=== PATIENT | male | born 1980 | race African-American/Black ===

== ENCOUNTER 2023-01-07 14:14 | Emergency (ER) | payer BC ==
[~2023-01-07] VITALS: Ht 170.1 cm; Wt 89.5 kg
--- NOTE | 2023-01-07 14:22 | ED Chest Pain ---
General Chief Complaint: Chest Pain Stated Complaint: CP LAST NIGHT History of Present Illness Date Seen by Provider: Jan 07, 2023 Time Seen by Provider: 14:22 Initial Comments 42-year-old male with PMH of GERD/HTN/active smoker, is sent here from urgent care with complaints of bilateral upper and retrosternal chest pain which began last night. Patient does have a history of lifting heavy boxes and furniture around yesterday. Patient does not take Prilosec regularly for his GERD and he also is very noncompliant with his blood pressure medications and has not been taking it for a while. Patient has a strong family history of heart attacks which include his parents and relatives a couple of who in their 50s due to heart disease. Denies shortness of breath, fever and chills, cough, nausea and vomiting, diaphoresis. Allergies and Home Medications Allergies Coded Allergies: No Known Drug Allergies (Unverified , 01/07/23) Patient Home Medication List Home Medication List Reviewed: Yes Review of Systems Review of Systems Constitutional: no symptoms reported EENTM: No Symptoms Reported Respiratory: No Symptoms Reported Cardiovascular: Chest Pain Gastrointestinal: No Symptoms Reported Genitourinary: No Symptoms Reported Musculoskeletal: no symptoms reported Skin: no symptoms reported Psychiatric/Neurological: No Symptoms Reported Endocrine: No Symptoms Reported Hematologic/Lymphatic: No Symptoms Reported Physical Exam Vital Signs Vital Signs - First Documented 01/07/23 14:18 Temp 35.9 Pulse 99 Resp 18 B/P (MAP) 131/90 (104) Pulse Ox 96 O2 Delivery Room Air Capillary Refill : Height, Weight, BMI Height: '" Weight: lbs. oz. kg; BMI Method: General Appearance: No Apparent Distress, WD/WN HEENT: PERRL/EOMI Neck: Full Range of Motion Respiratory: Lungs Clear, Normal Breath Sounds, No Accessory Muscle Use, Other (Reproducible chest tenderness over the second third and fourth costochondral junctions bilaterally) Cardiovascular: Regular Rate, Rhythm, No Edema Gastrointestinal: Normal Bowel Sounds, Non Tender, Soft Extremity: Normal Range of Motion Neurologic/Psychiatric: Alert, Oriented x3, No Motor/Sensory Deficits Skin: Normal Color Progress/Results/Core Measures Results/Orders Lab Results Laboratory Tests Test 01/07/23 14:20 01/07/23 14:35 01/07/23 15:35 Range/Units Urine Color YELLOW Urine Clarity CLEAR Urine pH 6.0 5-9 Urine Specific [place] 1.025 H 1.016-1.022 Urine Protein NEGATIVE NEGATIVE Urine Glucose (UA) NEGATIVE NEGATIVE Urine Ketones NEGATIVE NEGATIVE Urine Nitrite NEGATIVE NEGATIVE Urine Bilirubin NEGATIVE NEGATIVE Urine Urobilinogen 0.2 < = 1.0 MG/DL Urine Leukocyte Esterase NEGATIVE NEGATIVE Urine RBC (Auto) TRACE-I H NEGATIVE Urine RBC 5-10 H /HPF Urine WBC NONE /HPF Urine Crystals NONE /LPF Urine Bacteria TRACE /HPF Urine Casts NONE /LPF Urine Mucus LARGE H /LPF Urine Other SPERM PRESENT /HPF Urine Culture Indicated NO Urine Opiates Screen NEGATIVE NEGATIVE Urine Oxycodone Screen NEGATIVE NEGATIVE Urine Methadone Screen NEGATIVE NEGATIVE Urine Propoxyphene Screen NEGATIVE NEGATIVE Urine Barbiturates Screen NEGATIVE NEGATIVE Ur Tricyclic Antidepressants Screen NEGATIVE NEGATIVE Urine Phencyclidine Screen NEGATIVE NEGATIVE Urine Amphetamines Screen NEGATIVE NEGATIVE Urine Methamphetamines Screen NEGATIVE NEGATIVE Urine Benzodiazepines Screen NEGATIVE NEGATIVE Urine Cocaine Screen NEGATIVE NEGATIVE Urine Cannabinoids Screen NEGATIVE NEGATIVE White Blood Count 10.0 4.3-11.0 10^3/uL Red Blood Count 5.82 H 4.30-5.52 10^6/uL Hemoglobin 18.0 H 13.3-17.7 g/dL Hematocrit 52 40-54 % Mean Corpuscular Volume 90 80-99 fL Mean Corpuscular Hemoglobin 31 25-34 pg Mean Corpuscular Hemoglobin Concent 34 32-36 g/dL Red Cell Distribution Width 12.5 10.0-14.5 % Platelet Count 393 130-400 10^3/uL Mean Platelet Volume 8.6 L 9.0-12.2 fL Immature Granulocyte % (Auto) 0 % Neutrophils (%) (Auto) 51 42-75 % Lymphocytes (%) (Auto) 40 12-44 % Monocytes (%) (Auto) 7 0-12 % Eosinophils (%) (Auto) 1 0-10 % Basophils (%) (Auto) 0 0-10 % Neutrophils # (Auto) 5.1 1.8-7.8 10^3/uL Lymphocytes # (Auto) 4.0 1.0-4.0 10^3/uL Monocytes # (Auto) 0.7 0.0-1.0 10^3/uL Eosinophils # (Auto) 0.1 0.0-0.3 10^3/uL Basophils # (Auto) 0.0 0.0-0.1 10^3/uL Immature Granulocyte # (Auto) 0.0 0.0-0.1 10^3/uL Sodium Level 138 135-145 MMOL/L Potassium Level 3.9 3.6-5.0 MMOL/L Chloride Level 104 98-107 MMOL/L Carbon Dioxide Level 23 21-32 MMOL/L Anion Gap 11 5-14 MMOL/L Blood Urea Nitrogen 10 7-18 MG/DL Creatinine 0.75 0.60-1.30 MG/DL Estimat Glomerular Filtration Rate 116 BUN/Creatinine Ratio 13 Glucose Level 111 H 70-105 MG/DL Calcium Level 9.4 8.5-10.1 MG/DL Corrected Calcium 9.2 8.5-10.1 MG/DL Magnesium Level 1.7 1.6-2.4 MG/DL Total Bilirubin 0.4 0.1-1.0 MG/DL Aspartate Amino Transf (AST/SGOT) 31 5-34 U/L Alanine Aminotransferase (ALT/SGPT) 59 H 0-55 U/L Alkaline Phosphatase 85 40-136 U/L Troponin I < 0.30 < 0.30 <0.30 NG/ML Total Protein 7.4 6.4-8.2 GM/DL Albumin 4.3 3.2-4.5 GM/DL Serum Alcohol < 10 <10 MG/DL My Orders Orders - MISTY DE LA GARZA MD Continuous Ekg Monitoring (01/07/23 14:22) Ekg Tracing (01/07/23 14:22) Alcohol (01/07/23 14:23) Cbc With Automated Diff (01/07/23 14:23) Comprehensive Metabolic Panel (01/07/23 14:23) Drug Screen Stat (Urine) (01/07/23 14:23) Magnesium (01/07/23 14:23) Ua Culture If Indicated (01/07/23 14:23) Troponin I Fs (01/07/23 14:23) Chest 1 View Ap/Pa Only (01/07/23 14:23) Troponin I Fs (01/07/23 15:25) Ekg Tracing (01/07/23 15:25) Vital Signs/I&O 01/07/23 14:18 Temp 35.9 Pulse 99 Resp 18 B/P (MAP) 131/90 (104) Pulse Ox 96 O2 Delivery Room Air Progress Progress Note : Progress Note 1. ACS RULED OUT: ACUTE COSTOCHONDRITIS & GERD - CXR: no acute finding - EKG x 2: NSR, non-ischemic - Troponinx 2: undetecetd - CBC/ CMP: unreamrkable - UDS: negative - Advised Ibuoprofen q6h 400mg for 3 to 7 days - Advised to start taking Prilosec daily as he had been - Follow up with PCP in 3 to 7 days -The patient was seen in the ED, and treated appropriately to presentation at a specific point in time. Patient is informed that there is a possibility that disease and illness can evolve and change in acuity rapidly or slowly after patient is discharged from the ER. Precautionary advice given to the patient for immediate return to ER if symptoms worsen or do not resolve, and to seek emergency care sooner rather than later. Pt also advised on the importance of PCP follow up and compliance with management and follow up plan with PCP and/or specialist, as this is part of the management plan. Pt verbally expressed understanding. Initial ECG Impression Date: Jan 07, 2023 Initial ECG Impression Time: 14:32 Initial ECG Rate: 88 Initial ECG Rhythm: Normal Sinus Initial ECG Intervals: Normal Initial ECG Impression: Normal Initial ECG Comparisson: No Previous ECG Available EKG : EKG Time: 15:34 Rate: 77 Rhythm: Normal Sinus Intervals: Normal ECG Comparisson: Unchanged ECG Impression: Normal Diagnostic Imaging Diagonstic Imaging: Xray Plain Films/CT/US/NM/MRI: chest Comments [facility] [place], [place] NAME: TAVARES MATUTE [facility] REC#: [id number] PT STATUS: REG ER : [id number] PHYSICIAN: MISTY DE LA GARZA MD ADMIT DATE: 01/07/23/ER FS Draft Date of Exam:01/07/23 CHEST 1 VIEW AP/PA ONLY INDICATION: Chest pain FINDINGS: The lungs clear. No failure, effusion or pneumothorax. IMPRESSION: Negative. Dictated on workstation # [id number] Dict: 01/07/23 1457 Trans: 01/07/23 1458 [facility] [id number] Interpreted by: AKIN HERMAN Electronically signed by: Departure Impression Primary Impression: Acute costochondritis Additional Impressions: GERD (gastroesophageal reflux disease) Ruled out for myocardial infarction Disposition: HOME, SELF-CARE Condition: Stable Departure-Patient Inst. Patient Instructions: Acid reflux and gastroesophageal reflux disease in adults, Heart Healthy Diet, Costochondritis (DC) Add. Discharge Instructions: - Advised Ibuoprofen q6h 400mg for 3 to 7 days - Advised to start taking Prilosec daily as he had been - Follow up with PCP in 3 to 7 days All discharge instructions reviewed with patient and/or family. Voiced understanding. MISTY DE LA GARZA MD Jan 07, 2023 14:22
[2023-01-07 14:35] LABS: BILIRUBIN,URINE NEGATIVE (NEGATIVE); CLARITY,URINE CLEAR; COLOR,URINE YELLOW; GLUCOSE, URINE (UA) NEGATIVE (NEGATIVE); KETONES,URINE NEGATIVE (NEGATIVE); LEUKOCYTE ESTERASE ,URINE NEGATIVE (NEGATIVE); NITRITE,URINE NEGATIVE (NEGATIVE); PROTEIN,URINE NEGATIVE (NEGATIVE)
[2023-01-07 14:42] LABS: BASOPHILS % (AUTO) 0 % (0-10); EOSINOPHILS # (AUTO) 0.1 10^3/uL (0.0-0.3); EOSINOPHILS % (AUTO) 1 % (0-10); HEMATOCRIT 52 % (40-54); LYMPHOCYTES % (AUTO) 40 % (12-44); MEAN CORPUSCULAR HEMOGLOBIN 31 pg (25-34); MEAN CORPUSCULAR HGB CONC 34 g/dL (32-36); MEAN CORPUSCULAR VOLUME 90 fL (80-99); MEAN PLATELET VOLUME 8.6 fL (9.0-12.2); MONOCYTES # (AUTO) 0.7 10^3/uL (0.0-1.0); MONOCYTES % (AUTO) 7 % (0-12); NEUTROPHILS # (AUTO) 5.1 10^3/uL (1.8-7.8); NEUTROPHILS % (AUTO) 51 % (42-75); PLATELET COUNT 393 10^3/uL (130-400)
[2023-01-07 14:45] LABS: BACTERIA,URINE TRACE /HPF; URINE OTHER SPERM PRESENT /HPF
--- NOTE | 2023-01-07 14:59 | Diagnostic Imaging Report ---
INDICATION: Chest pain FINDINGS: The lungs clear. No failure, effusion or pneumothorax. IMPRESSION: Negative. Dictated by: Dictated on workstation # [id number]
[2023-01-07 15:03] LABS: ALANINE AMINOTRANSFERASE 59 U/L (0-55); ALBUMIN 4.3 GM/DL (3.2-4.5); ALKALINE PHOSPHATASE 85 U/L (40-136); BILIRUBIN,TOTAL 0.4 MG/DL (0.1-1.0); BUN/CREATININE RATIO 13; CALCIUM 9.4 MG/DL (8.5-10.1); CARBON DIOXIDE 23 MMOL/L (21-32); CHLORIDE 104 MMOL/L (98-107); CREATININE SERUM 0.75 MG/DL (0.60-1.30); GFR ESTIMATED 116; GLUCOSE 111 MG/DL (70-105); MAGNESIUM 1.7 MG/DL (1.6-2.4); POTASSIUM 3.9 MMOL/L (3.6-5.0); SODIUM 138 MMOL/L (135-145); TOTAL PROTEIN 7.4 GM/DL (6.4-8.2)
[2023-01-07 15:05] LABS: AMPHETAMINE SCREEN, URINE NEGATIVE (NEGATIVE); BARBITURATE SCREEN URINE NEGATIVE (NEGATIVE); BENZODIAZEPINES SCREEN URINE NEGATIVE (NEGATIVE); CANNABINOID SCREEN, URINE NEGATIVE (NEGATIVE); COCAINE SCREEN URINE NEGATIVE (NEGATIVE); METHADONE STAT NEGATIVE (NEGATIVE); OPIATE SCREEN URINE NEGATIVE (NEGATIVE); OXYCODONE STAT NEGATIVE (NEGATIVE); PROPOXYPHENE STAT NEGATIVE (NEGATIVE); TRICYCLIC ANTIDEPRESSANTS SCRE NEGATIVE (NEGATIVE)
[2023-01-07 16:28] VITALS: BP 134/84
== END 2023-01-07 16:28 | disposition home or self-care (01) ==
LOC: EDUNIT# 14:14 → ER FS 14:16
DX: M94.0 Chondrocostal junction syndrome [Tietze] (principal); I10 Essential (primary) hypertension; K21.9 Gastro-esophageal reflux disease without esophagitis; T47.1X6A Underdosing of other antacids and anti-gastric-secretion drugs, initial encounter; F17.200 Nicotine dependence, unspecified, uncomplicated; Z91.128 Patient's intentional underdosing of medication regimen for other reason; Z91.148 Patient's other noncompliance with medication regimen for other reason; Z82.49 Family history of ischemic heart disease and other diseases of the circulatory system; Z28.310 Unvaccinated for COVID-19
CPT/HCPCS: 36415; 71045; 80053; 80306; 81000; 83735; 84484; 85025; 99284; G0480; 80320; 93005